=== PATIENT | female | born 1930 | race Caucasian/White ===

== ENCOUNTER 2016-04-04 18:52 | Emergency (ER) | payer MEDICARE, BC ==
--- OUTSIDE RECORDS SUMMARY | 2016-04-04 19:33 | XMS REPORT | Continuity of Care Document ---
:1930 Author Organization [facility] ([facility]) Address [address] [place] [address] Phone [phone] Care Team Providers Name Role Phone Ben, Quang Primary Care Provider [phone] Source Comments This disclosure is being made pursuant to the Care Everywhere program, applicable federal and state laws, and may not contain all informaitonavailable regarding this patient.[facility] ([facility]) Active Allergies and Adverse Reactions Allergen Noted Date Severity Reactions Comments Amoxicillin Urticaria (Hives) Current Medications Not on file Active Problems Problem Noted Date Optic atrophy, 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 Unspecified urinary incontinence 11/10/2005 Social History Tobacco Use Types Packs/Day Years Used Date Never Assessed Last Filed Vital Signs Vital Sign Reading Time Taken Blood Pressure 115/69 12/24/2005 9:37 AM CUSHION FORMER Pulse 85 12/24/2005 9:37 AM CUSHION FORMER Temperature - - Respiratory Rate - - Height 1.65 m (5' 4.96") 11/10/2005 9:05 AM CDT Weight 77.597 kg (171 lb 1.1 oz) 11/10/2005 9:05 AM CDT Body Mass Index 28.5 11/10/2005 9:05 AM CDT Oxygen Saturation - - Plan of Care Health Maintenance Due Date Last Done Comments Hepatitis B Vaccine (1 of 3 - Primary Series) 1930 Tdap Vaccine 02/20/1940 Lipid Disorder Screening 1948 Td Vaccine 1948 Zoster Vaccine 1989 Pneumococcal Vaccine (1 of 2 - PCV13) 1994 Influenza Vaccine: Seasonal (#1) 09/22/2015 Results from Last 3 Months Not on file
--- NOTE | 2016-04-04 19:36 | ERNOTE ---
Medical Problem HPI - Narrative Date of Service: 04/04/16 - General Chief Complaint: General Assessment Time Seen by Provider: 04/04/16 19:25 Source: patient, EMS Exam Limitations: other - patient difficult to understand - Immun/Allergies/Home Medications Immunizations: IMMUNIZATION HX Immunizations Up to Date unknown History of Influenza Vaccine Yes Hx Pneumococcal Vaccination Yes Allergies/Adverse Reactions: Allergies amoxicillin Allergy (Verified 04/04/16 19:11) prednisone Allergy (Verified 04/04/16 19:11) Home Medications: HOME MEDICATIONS Metformin HCl [Metformin HCl ER] 1,000 mg PO BID 05/04/12 [Last Taken 08/31/15] Simvastatin [Zocor] 20 mg PO HS 05/04/12 [Last Taken 08/31/15] ALPRAZolam [Xanax] 0.5 mg PO BID 08/10/15 [Last Taken 08/31/15] Mirtazapine [Remeron] 15 mg PO DAILY 08/10/15 [Last Taken 08/31/15] Acetaminophen [Tylenol] 1,000 mg PO Q4H PRN 08/31/15 [Last Taken 08/31/15] - History of Present History Narrative: History is very limited. By report she has been having spells where she is less responsive and more confused. This has been happening in the evenings for the last two days, worse tonight. She here is alert to verbal stimuli, easily arouses to my voice and answers to questions but is very difficult to understand. I can get no meaningful Hx from her. She denies CP or SOB. She states chronic leg pain but this is no different from prior. She denies vomiting or abdominal pain. No other Hx available from her. Timing: other - fluctuating intensity Modifying Factors - (Improves): Present: other - nothing Modifying Factors - (Worsens): Present: other - nothing Review of Systems - Narrative Narrative: ROS essentially unobtainable from the patient. No CP or SOB. No abdominal pain but otheerwise unobtainable. - Review of Systems All Other Systems: All systems neg except as marked - Patient's Past Medical History Patient History - Medical: Anxiety, Cataracts, Diabetes Type 2, Depression, Glaucoma Patient History - Cardiac/Respiratory: Hypertension, Hyperlipidemia Patient History - Cancer: No Hx of Cancer Patient History - Surgical Procedures: Cataracts, Hysterectomy Patient History - Other: None - Family History Mother Family History - Medical: History Unknown Family History - Cardiac/Respiratory: Hypertension, Myocardial Infarction - Social History Living Situations: prison Psych History: No pertinent hx Does anyone smoke in the home?: No Smoking Status: Never smoker Alcohol Use: none Drug Use: none - Immunizations Immunizations Up to Date: - unknown Hx Pneumococcal Vaccination: Yes History of Influenza Vaccine: Yes Physical Exam - Physical Exam General Appearance: Present: alert, no apparent distress Eye Exam: Normal inspection: bilateral Ears, Nose, Throat: Present: normal ENT inspection Neck: Present: normal inspection Respiratory: Present: no respiratory distress, no accessory muscle use, lungs clear Cardiovascular/Chest: Present: regular rate, rhythm Gastrointestinal/Abdominal: Present: normal bowel sounds, nondistended, soft. Absent: tenderness Back Exam: Absent: CVA tenderness (R), CVA tenderness (L) Extremity Exam: Present: other - no deformity Neurological Exam: Present: alert, other - generealized weakness but no acute unilateral focal motor or sensory deficits. Skin Exam: Absent: skin rash ED Progress - Vital Signs Vital Signs: Vital Signs 04/04/16 04/04/16 18:53 19:22 Temperature 35.9 C L Pulse Rate 78 79 Respiratory 16 16 Rate Blood Pressure 141/75 141/75 O2 Sat by Pulse 94 97 Oximetry - Progress/Reassessment Chief Complaint: General Assessment - Transfer of Care Physician Sign Out: Bryn Barry Receiving Physician: Brayan Rosa Pending Results: Labs, X-ray results Expected Disposition: Admit Departure - Departure Clinical Impression: Mental status change Referrals: Quang Contreras MD [Primary Care Provider] -
[2016-04-04 19:53] LABS: Hematocrit 37.5 % (37.0-47.0); Mean Cell Volume 91.5 fl (78-100); Mean Corpuscular Hemoglobin 29.3 pg (27-31); Mean Platelet Volume 8.7 fl (6.0-9.5); Neutrophil # 2.3 K/mm3 (1.3-6.0); Neutrophil % 41.8 % (42-75.0); Platelet Count 210 K/mm3 (150-450); Red Cell Distribution Width 13.5 % (11.5-14.0); White Blood Count 5.4 K/mm3 (4.0-10.5)
[2016-04-04 20:12] LABS: Albumin * 3.3 gm/dl (3.4-5.0); Anion Gap 9.7 mmol/L (6.8-13.8); BUN/Creatinine Ratio 16.7 (9.0-21.6); Bilirubin, Total 0.2 mg/dL (0.0-1.1); Ca. Corrected For Albumin 9.6 mg/dL (8.4-10.2); Calcium * 9.4 mg/dL (7.9-10.9); Carbon Dioxide 31.5 mmol/L (24-32.6); Potassium 4.2 mmol/L (3.4-4.6); Total Protein 6.5 gm/dL (6.2-8.2); Troponin I 0.022 ng/ml (0.00-0.10)
[2016-04-04 20:48] LABS: Urine Appearance Clear; Urine Bilirubin Negative (NEGATIVE); Urine Blood Negative /ul (NEGATIVE); Urine Color Yellow; Urine Ketone Negative (NEGATIVE)
[2016-04-04 20:49] LABS: Urine Bacteria None Seen; Urine Nitrite Negative (NEGATIVE); Urine Protein Negative (NEGATIVE); Urine RBC None Seen /hpf (0-5); Urine Urobilinogen Normal (NORMAL); Urine WBC None Seen /hpf (0-5); Urine pH 5.5 pH (5.0-7.0)
[2016-04-04 22:32] VITALS: BP 155/71
== END 2016-04-04 22:00 | disposition home health service (06) ==
LOC: ER 18:52
PROC: 0T9B7ZZ Drainage of Bladder, Via Natural or Artificial Opening (ICD-10-PCS; principal; 2016-04-04)
DX: R41.82 Altered mental status, unspecified (principal); R41.0 Disorientation, unspecified; F19.10 Other psychoactive substance abuse, uncomplicated

== ENCOUNTER 2017-11-16 09:07 | Observation (INO) | payer BC, MEDICARE ==
[2017-11-16] MEDS ORDERED: KETOROLAC TROMETHAMINE 60 MG/2 ML VIAL IM ONE ×2 (09:17→09:18)
--- NOTE | 2017-11-16 09:22 | ERNOTE ---
Trauma/Assault HPI - Narrative Date of Service: 11/16/17 - General Stated Complaint: FALL YESTERDAY-HIP PAIN Time Seen by Provider: 11/16/17 09:14 Source: patient Exam Limitations: no limitations - Immun/Allergies/Home Medications Immunizations: IMMUNIZATION HX Immunizations Up to Date Yes History of Influenza Vaccine No Hx Pneumococcal Vaccination No Allergies/Adverse Reactions: Allergies amoxicillin Allergy (Verified 11/16/17 09:13) Penicillins Allergy (Verified 11/16/17 09:13) Rash Hives prednisone Allergy (Verified 11/16/17 09:13) Home Medications: HOME MEDICATIONS nystatin 100,000 unit/gram topical powder 1 applic TP BID PRN #60 g 09/15/17 [ Last Taken Unknown] loperamide 2 mg capsule 2 mg PO Q4H PRN #90 cap 10/11/17 [Last Taken Unknown] BiPAP 16 cm RAIMUNDO DIRECTED #1 10/14/17 [Last Taken Unknown] acetaminophen 325 mg tablet 325 mg PO Q4H PRN 10/14/17 [Last Taken Unknown] carbamide peroxide 6.5 % ear drops 5 drp OT BID 10/14/17 [Last Taken Unknown] walker See Dose Instructions .ROUTE .MEDSUPPLY #1 ea 10/14/17 [Last Taken Unknown] hydrocortisone 1 % topical cream 1 applic TP BID PRN #28 g 10/18/17 [Last Taken Unknown] levothyroxine 25 mcg tablet 25 mcg PO DAILY #30 tab 11/03/17 [Last Taken Unknown ] alprazolam 0.5 mg tablet 0.5 mg PO BID PRN #60 tab 11/04/17 [Last Taken Unknown] mirtazapine 7.5 mg tablet 7.5 mg PO DAILY #30 tab 11/04/17 [Last Taken Unknown] amhqydoj-udbnpmaixuf-wnfux petrolatum topical cream 1 applic TP BID #453 g 11/10 [Last Taken Unknown] metformin 500 mg tablet 1,000 mg PO BID #360 tab 11/15/17 [Last Taken Unknown] sertraline 25 mg tablet 25 mg PO DAILY #30 tab 11/15/17 [Last Taken Unknown] simvastatin 20 mg tablet 20 mg PO HS #28 tab 11/15/17 [Last Taken Unknown] - History of Present Illness Narrative: patient c/o fall yesterday on left hip, persitant pain, unable to walk Location Occurred: Reports: home Pain Location: Reports: lower extremity Method of Injury: Reports: fall Severity: moderate Modifying Factors - (Improves): Reports: rest Modifying Factors - (Worsens): Reports: movement Loss of Consciousness: Reports: no loss of consciousness, still comatose Review of Systems - Narrative Narrative: patient c/o left hip pain - Review of Systems Constitutional: Present: See HPI EYE: Present: no symptoms reported ENT: Present: no symptoms reported Respiratory: Present: no symptoms reported Cardiology: Present: no symptoms reported Gastrointestinal/Abdominal: Present: no symptoms reported Genitourinary: Present: no symptoms reported Musculoskeletal: Present: See HPI, muscle pain, muscle stiffness, joint pain Skin: Present: no symptoms reported Neurological: Present: no symptoms reported Endocrine: Present: no symptoms reported Hematologic/Lymphatic: Present: no symptoms reported Psych: Present: no symptoms reported All Other Systems: All systems neg except as marked Medical History (Last Reviewed 11/16/17 @ 09:17 by Christiano Hernandez RN) Overactive bladder (Chronic) Onset Date: Unknown Hyperlipemia (Chronic) Onset Date: Unknown Generalized anxiety disorder (Chronic) Onset Date: Unknown Diabetes mellitus, type II (Chronic) Onset Date: Unknown Arthritis Depression Glaucoma Onset Date: Unknown Major depressive disorder Nightmares Wears dentures Onset Date: Unknown Wears glasses Onset Date: Unknown Bronchitis Measles Scarlet fever Surgical History: Surgical History (Last Reviewed 11/16/17 @ 09:17 by Christiano Hernandez RN) H/O bilateral cataract extraction Onset Date: ~1997 History of bladder surgery Onset Date: ~10/1998 S/P SUSANA (total abdominal hysterectomy) Onset Date: ~1995 Family History: Family History (Last Reviewed 11/16/17 @ 09:17 by Christiano Hernandez RN) Sister CVA (cerebral vascular accident) Diabetes Brother Cancer Grandmother Heart disease Hypertension Mother Hypertension Daughter FH: mental illness Other Unknown family medical history Social History: Preferred Language Paraguayan Do you have any orthodox or No cultural preference? Smoking Status Former smoker Have you smoked in the past 12 No months Do you dip or chew tobacco No Psych History No pertinent hx Alcohol Use none Drug Use none Physical Exam - Physical Exam General Appearance: Present: moderate distress, anxious Head Exam: Present: normal inspection, no evidence of injury Eye Exam: Normal inspection: bilateral, PERRL: bilateral, EOMI: bilateral Ears, Nose, Throat: Present: normal ENT inspection, normal pharynx Neck: Present: normal inspection, nontender Respiratory: Present: no respiratory distress, normal breath sounds, no accessory muscle use, chest nontender, lungs clear Cardiovascular/Chest: Present: regular rate, rhythm, no murmur, normal peripheral pulses Gastrointestinal/Abdominal: Present: normal bowel sounds, nontender, nondistended, soft, no organomegaly Back Exam: Present: normal inspection, normal range of motion, no CVA tenderness , no vertebral tenderness Extremity Exam: Present: normal except - - pain over greater trochanter of left hip Skin Exam: Present: normal color, warm/dry Lymphatic Exam: Present: no adenopathy ED Progress - Date and Time Seen: Date and Time: 11/16/17 11:08 patient improved, discussed results of x-rays and labs, case discussed with dr byers, who accepts patient for admission - Results and Orders Patient's Lab Results:: I have reviewed the patient's lab results. - Vital Signs Patient's Vital Signs:: I have reviewed the patient's vital signs. Vital Signs: Vital Signs 11/16/17 09:09 Temperature 36.5 C Pulse Rate 92 Respiratory Rate 16 Blood Pressure 150/71 H O2 Sat by Pulse Oximetry 98 - EKG EKG: NSR EKG read: Interp. by me - Progress/Reassessment Chief Complaint: Fall Progress:: Unchanged - Transfer of Care Expected Disposition: Admit Plan - Plan Plan: to be admitted Departure Clinical Impression: Pelvis fracture, Urinary tract infection - Departure Disposition: Still a patient Condition: Fair Instructions: Simple Pelvic Fracture, Adult, Urinary Tract Infection, Adult, [id number] Referrals: Quang Contreras MD [Primary Care Provider] - Critical Care Time - Critical Care Critical Time Spent:: No
[2017-11-16 10:20] LABS: Hematocrit 35.3 % (37.0-47.0); Hemoglobin 11.6 gm/dL (12.5-16.0); Mean Cell Volume 93.1 fl (78-100); Mean Corpuscular Hemoglobin 30.6 pg (27-31); Mean Corpuscular Hgb Conc 32.9 g/dl (32-36); Mean Platelet Volume 8.9 fl (8-12.5); Neutrophil # 5.7 K/mm3 (1.3-6.0); Neutrophil % 76.2 % (42-75.0); Platelet Count 216 K/mm3 (150-450); Red Blood Count 3.79 M/mm3 (4.2-5.4); Red Cell Distribution Width 13.2 % (11.5-14.0); White Blood Count 7.5 K/mm3 (4.0-10.5)
[2017-11-16 10:31] LABS: Albumin * 3.5 gm/dl (3.4-5.0); Anion Gap 12.8 mmol/L (6.8-13.8); BUN/Creatinine Ratio 16.7 (9.0-21.6); Bilirubin, Total 0.7 mg/dL (0.0-1.1); Calcium * 8.9 mg/dL (7.9-10.9); Potassium 3.8 mmol/L (3.4-4.6); Total Protein 6.5 gm/dL (6.2-8.2)
[2017-11-16 10:45] LABS: Urine Bilirubin Negative (NEGATIVE); Urine Blood Negative /ul (NEGATIVE); Urine Ketone 15 mg/dL (NEGATIVE); Urine Nitrite Negative (NEGATIVE); Urine Protein Negative (NEGATIVE); Urine Urobilinogen Normal (NORMAL)
[2017-11-16 10:56] LABS: Urine Appearance Slightly Cloudy (CLEAR); Urine Bacteria 3+; Urine Color Yellow; Urine RBC 0-5 /hpf (0-5)
[2017-11-16] MEDS ORDERED: MORPHINE SULFATE 4 MG/ML SYRG IV PRN (11:16)
[2017-11-16] MEDS: CIPROFLOXACIN IN 5 % DEXTROSE 400 MG/200 ML BAG IV SCH ×2 (12:10→23:01)
[2017-11-16] MEDS ORDERED: MORPHINE SULFATE 2 MG/ML DISP.SYRIN IV PRN (13:15)
[2017-11-16] MEDS: NORMAL SALINE 1,000 ML IV PRN (16:27)
[2017-11-16] MEDS ORDERED: HYDROCORTISONE 30 APPL TUBE TP PRN (20:57)
[2017-11-16] MEDS ORDERED: LOPERAMIDE HCL 2 MG CAPSULE PO PRN (20:57)
[2017-11-16] MEDS ORDERED: NYSTATIN 15 APPL BTL TP PRN (20:57)
[2017-11-16] MEDS ORDERED: ALPRAZolam 0.5 MG TABLET PO PRN (20:57)
[2017-11-16] MEDS ORDERED: [UNRECOGNIZED DRUG - REMARK] SCH (21:00)
[2017-11-16] MEDS ORDERED: SIMVASTATIN 20 MG TABLET PO SCH (21:00)
[2017-11-16] MEDS ORDERED: [UNRECOGNIZED DRUG - OTHER] NAS SCH (21:00)
[2017-11-16] MEDS ORDERED: metFORMIN HCL 500 MG TABLET PO SCH (21:00)
--- NOTE | 2017-11-16 21:10 | HP ---
Chief Complaint - Chief Complaint Date of Service: 11/16/17 Time of Service: 07:10 Chief Complaint: pelvic pain due to fracture History of Present Illness: Gabriella Amaya is an 87-year-old female patient who presented to the ER with pelvic pain following up all. Diagnosed with a nondisplaced pelvic fracture. She is unable to bear weight and subsequently admitted. On examination this evening she denies having any pain until I put pressure over the symphysis pubis and that created some increased pain in the pelvis then. She's had no previous fractures reported. She has a history of hypertension, and poor dentition. Medical History (Last Reviewed 11/16/17 @ 09:17 by Christiano Hernandez RN) Overactive bladder (Chronic) Onset Date: Unknown Hyperlipemia (Chronic) Onset Date: Unknown Generalized anxiety disorder (Chronic) Onset Date: Unknown Diabetes mellitus, type II (Chronic) Onset Date: Unknown Arthritis Depression Glaucoma Onset Date: Unknown Major depressive disorder Nightmares Wears dentures Onset Date: Unknown Wears glasses Onset Date: Unknown Bronchitis Measles Scarlet fever Surgical History: Surgical History (Last Reviewed 11/16/17 @ 09:17 by Christiano Hernandez RN) H/O bilateral cataract extraction Onset Date: ~1997 History of bladder surgery Onset Date: ~10/1998 S/P SUSANA (total abdominal hysterectomy) Onset Date: ~1995 Family History: Family History (Last Reviewed 11/16/17 @ 09:17 by Christiano Hernandez RN) Sister CVA (cerebral vascular accident) Diabetes Brother Cancer Grandmother Heart disease Hypertension Mother Hypertension Daughter FH: mental illness Other Unknown family medical history Social History: Patient Lives/Resources [employer] Utilized Occupation retired Preferred Language Chinese Do you have any druze or No cultural preference? Smoking Status Never smoker Have you smoked in the past 12 No months Do you dip or chew tobacco No Psych History No pertinent hx Alcohol Use none Drug Use none Review Of Systems (GEN) - Review of Systems EENTM: Present: No Symptoms Reported Respiratory: Present: No Symptoms Reported Cardiac: Present: No Symptoms Reported Abdominal: Present: No Symptoms Reported Genitourinary: Present: No Symptoms Reported Musculoskeletal: Present: No Symptoms Reported, Other - Initially had severe pelvic pain and was unable to bear weight. She is able to bear weight here. Skin: Present: No Symptoms Reported Endocrine: Present: No Symptoms Reported Immunizations: IMMUNIZATION HX Immunizations Up to Date Yes History of Influenza Vaccine No Hx Pneumococcal Vaccination No Allergies/Adverse Reactions: Allergies Allergy/AdvReac Type Severity Reaction Status Date / Time amoxicillin Allergy Verified 11/16/17 09:13 Penicillins Allergy Rash Hives Verified 11/16/17 09:13 prednisone Allergy Verified 11/16/17 09:13 Home Medications: HOME MEDICATIONS nystatin 100,000 unit/gram topical powder 1 applic TP BID PRN #60 g 09/15/17 [ Last Taken Unknown] loperamide 2 mg capsule 2 mg PO Q4H PRN #90 cap 10/11/17 [Last Taken Unknown] BiPAP 16 cm RAIMUNDO DIRECTED #1 10/14/17 [Last Taken Unknown] acetaminophen 325 mg tablet 325 mg PO Q4H PRN 10/14/17 [Last Taken Unknown] carbamide peroxide 6.5 % ear drops 5 drp OT BID 10/14/17 [Last Taken Unknown] walker See Dose Instructions .ROUTE .MEDSUPPLY #1 ea 10/14/17 [Last Taken Unknown] hydrocortisone 1 % topical cream 1 applic TP BID PRN #28 g 10/18/17 [Last Taken Unknown] levothyroxine 25 mcg tablet 25 mcg PO DAILY #30 tab 11/03/17 [Last Taken Unknown ] alprazolam 0.5 mg tablet 0.5 mg PO BID PRN #60 tab 11/04/17 [Last Taken Unknown] mirtazapine 7.5 mg tablet 7.5 mg PO DAILY #30 tab 11/04/17 [Last Taken Unknown] lfolvmov-imbaxwoqlee-benfm petrolatum topical cream 1 applic TP BID #453 g 11/10 [Last Taken Unknown] metformin 500 mg tablet 1,000 mg PO BID #360 tab 11/15/17 [Last Taken Unknown] sertraline 25 mg tablet 25 mg PO DAILY #30 tab 11/15/17 [Last Taken Unknown] simvastatin 20 mg tablet 20 mg PO HS #28 tab 11/15/17 [Last Taken Unknown] Exam - Exam Vital Signs: Vital Signs - Last Taken Temp 36.5 C 11/16/17 19:15 Pulse 94 11/16/17 19:15 Resp 18 11/16/17 19:15 BP 164/90 H 11/16/17 19:15 Pulse Ox 96 11/16/17 19:15 Constitutional: Present: Alert, Oriented x3, Cooperative, Well developed, Well nourished, No distress ENT Exam: Present: normal ENT inspection, hearing grossly normal, pharynx normal Eye Exam: bilateral eye: normal inspection, PERRL, EOMI Neck: Present: non-tender, full range of motion, supple, normal inspection, trachea midline, limited range of motion Back Exam: Present: normal inspection, no CVA tenderness, no vertebral tenderness Breasts: Present: Exam deferred Respiratory: Present: chest non-tender, lungs clear, normal breath sounds, no respiratory distress, no accessory muscle use Cardiovascular/Chest: Present: normal peripheral pulses, regular rate, rhythm, no chest tenderness, no edema, no gallop, no JVD, no murmur, no rub Peripheral Pulses: carotid (R): 2+, carotid (L): 2+, radial (R): 2+, radial (L) : 2+ Abdomen: Present: Normal bowel sounds, soft, nontender, nondistended, no rebound tenderness, no hepatospenomegaly, no masses, obese /Rectal: Present: Exam deferred Extremity: Present: normal range of motion, non-tender, normal inspection, no pedal edema, no calf tenderness, normal capillary refill Skin Exam: Present: normal color, warm/dry Lymphatic: Present: no adenopathy Neurologic: Present: head usher II-XII nml as tested, no motor/sensory deficits, alert , normal mood/affect Appearance: Present: appropriate appearance Eye contact: Present: cooperative Thoughts: Present: normal thought pattern, no apparent hallucination Diagnostic Studies: Abnormal Lab Results 11/16/17 11/16/17 11/16/17 Range/Units 10:00 10:00 10:41 RBC 3.79 L (4.2-5.4) M/mm3 Hgb 11.6 L (12.5-16.0) gm/dL Hct 35.3 L (37.0-47.0) % Neutrophils % 76.2 H (42-75.0) % Lymphocytes % 13.1 L (20-51) % Lymphocytes # 0.98 L (1.5-3.5) k/mm3 Random Glucose 123 H (70-110) mg/dL Alkaline Phosphatase 48 L (50-170) U/L Ur Leukocyte Esterase 25 H (NEGATIVE) /ul Urine WBC 10-25 H (0-5) /hpf Urine Bacteria 3+ H (NONE) Laboratory Results WBC 7.5 K/mm3 (4.0-10.5) 11/16/17 10:00 RBC 3.79 M/mm3 (4.2-5.4) L 11/16/17 10:00 Hgb 11.6 gm/dL (12.5-16.0) L 11/16/17 10:00 Hct 35.3 % (37.0-47.0) L 11/16/17 10:00 MCV 93.1 fl (78-100) 11/16/17 10:00 MCH 30.6 pg (27-31) 11/16/17 10:00 MCHC 32.9 g/dl (32-36) 11/16/17 10:00 RDW 13.2 % (11.5-14.0) 11/16/17 10:00 Plt Count 216 K/mm3 (150-450) 11/16/17 10:00 MPV 8.9 fl (8-12.5) 11/16/17 10:00 Immature Gran % (Auto) 0.40 % (0.001-0.429) 11/16/17 10:00 Immature Gran # (Auto) 0.03 K/mm3 (0.000-0.0310) 11/16/17 10:00 Neutrophils % 76.2 % (42-75.0) H 11/16/17 10:00 Lymphocytes % 13.1 % (20-51) L 11/16/17 10:00 Monocytes % 8.9 % (0.0-9) 11/16/17 10:00 Eosinophils % 0.9 % (0.0-3.0) 11/16/17 10:00 Basophils % 0.5 % (0.0-1.0) 11/16/17 10:00 Nucleated RBC % 0.0 k/mm3 (0-1) 11/16/17 10:00 Neutrophils # 5.7 K/mm3 (1.3-6.0) 11/16/17 10:00 Lymphocytes # 0.98 k/mm3 (1.5-3.5) L 11/16/17 10:00 Monocytes # 0.7 k/mm3 (0.0-1.0) 11/16/17 10:00 Eosinophils # 0.1 k/mm3 (0.0-0.7) 11/16/17 10:00 Absolute Basophils 0.0 k/mm3 (0.0-0.1) 11/16/17 10:00 Sodium 138 mmol/L (132-142) 11/16/17 10:00 Plasma Sodium 138 mmol/L (130-142) 11/16/17 10:00 Potassium 3.8 mmol/L (3.4-4.6) 11/16/17 10:00 Chloride 100 mmol/L (97-106) 11/16/17 10:00 Carbon Dioxide 29.0 mmol/L (24-32.6) 11/16/17 10:00 Anion Gap 12.8 mmol/L (6.8-13.8) 11/16/17 10:00 BUN 12 mg/dL (3-23) 11/16/17 10:00 Creatinine 0.72 mg/dL (0.4-1.4) 11/16/17 10:00 Est GFR (Non-Af Amer) 81 mL/min (60-130) 11/16/17 10:00 BUN/Creatinine Ratio 16.7 (9.0-21.6) 11/16/17 10:00 Random Glucose 123 mg/dL (70-110) H 11/16/17 10:00 Calcium 8.9 mg/dL (7.9-10.9) 11/16/17 10:00 Calcium Adj for Albumin 9.0 mg/dL (8.4-10.2) 11/16/17 10:00 Total Bilirubin 0.7 mg/dL (0.0-1.1) 11/16/17 10:00 AST 20 U/L (0-48) 11/16/17 10:00 ALT 21 U/L (19-67) 11/16/17 10:00 Alkaline Phosphatase 48 U/L (50-170) L 11/16/17 10:00 Total Protein 6.5 gm/dL (6.2-8.2) 11/16/17 10:00 Albumin 3.5 gm/dl (3.4-5.0) 11/16/17 10:00 Urine Color Yellow 11/16/17 10:41 Urine Appearance Slightly cloudy (CLEAR) 11/16/17 10:41 Urine pH 6.0 pH (5.0-7.0) 11/16/17 10:41 Ur Specific Kerrick 1.020 SP.GR. (1.005-1.010) 11/16/17 10:41 Urine Protein Negative mg/dL (NEGATIVE) 11/16/17 10:41 Urine Glucose (UA) Negative mg/dL (NEGATIVE) 11/16/17 10:41 Urine Ketones 15 mg/dL (NEGATIVE) 11/16/17 10:41 Urine Blood Negative /ul (NEGATIVE) 11/16/17 10:41 Urine Nitrate Negative (NEGATIVE) 11/16/17 10:41 Urine Bilirubin Negative mg/dl (NEGATIVE) 11/16/17 10:41 Urine Urobilinogen Normal EU/dl (NORMAL) 11/16/17 10:41 Ur Leukocyte Esterase 25 /ul (NEGATIVE) H 11/16/17 10:41 Urine RBC 0-5 /hpf (0-5) 11/16/17 10:41 Urine WBC 10-25 /hpf (0-5) H 11/16/17 10:41 Ur Epithelial Cells 0-5 /hpf (0-5) 11/16/17 10:41 Urine Bacteria 3+ (NONE) H 11/16/17 10:41 Urine Culture Comments Culture to follow 11/16/17 10:41 Assessment/Plan - Narrative Narrative: 1. Pain management 2. PT to evaluate and progress weight-bearing as pain allows 3. Monitor blood sugars and blood pressure. - Assessment/Plan (1) Pelvis fracture Problem: Acute (2) Urinary tract infection Problem: Acute (3) Diabetes mellitus, type II Problem: Chronic (4) Anxiety Problem: Acute
[2017-11-16] MEDS: [UNRECOGNIZED DRUG - OTHER] TP SCH (21:48)
[2017-11-16] MEDS: GLY TP SCH (21:48)
[2017-11-16] MEDS: DIMETH TP SCH (21:48)
[2017-11-16] MEDS: PETROLAT WHT TP SCH (21:48)
[2017-11-16] MEDS: ACETAMINOPHEN 325 MG TABLET PO PRN (22:58)
[2017-11-17] MEDS: NORMAL SALINE 1,000 ML IV PRN (01:50)
[2017-11-17] MEDS ORDERED: ONDANSETRON HCL/PF 2 MG/ML VIAL IV PRN (05:33)
[2017-11-17] MEDS ORDERED: LEVOTHYROXINE SODIUM 25 MCG TABLET PO SCH (07:00)
[2017-11-17] MEDS: PETROLAT WHT TP SCH (08:08)
[2017-11-17] MEDS: DIMETH TP SCH (08:08)
[2017-11-17] MEDS: GLY TP SCH (08:08)
[2017-11-17] MEDS: [UNRECOGNIZED DRUG - OTHER] TP SCH (08:08)
[2017-11-17] MEDS: ACETAMINOPHEN 325 MG TABLET PO PRN (08:09)
[2017-11-17] MEDS ORDERED: SERTRALINE HCL 50 MG TABLET PO SCH (09:00)
[2017-11-17] MEDS ORDERED: amLODIPine BESYLATE 5 MG TABLET PO SCH (09:00)
--- NOTE | 2017-11-17 09:11 | DS ---
(1) Pelvis fracture Problem: Acute Qualifiers: (2) Urinary tract infection Problem: Acute Qualifiers: Urinary tract infection type: acute cystitis Hematuria presence: without hematuria Qualified Code(s): N30.00 - Acute cystitis without hematuria (3) Diabetes mellitus, type II Problem: Chronic Qualifiers: Diabetes mellitus [facility] insulin use: without [facility] use Diabetes mellitus complication status: without complication Qualified Code(s): E11.9 - Type 2 diabetes mellitus without complications (4) Anxiety Problem: Acute Description of Stay: Gabriella Amaya is an 87 yo. cauc. fe. who fellat the [place] and injured her pelvis. She was in severe pain on arrival to the ER but has been in very little pain since being admittedl. She is now ambulatory. She is eating well. There has not been any interim complications. Procedures Performed: none Results and Findings: Pending Mircobiology Results 11/16/17 10:41 Urine,Catheterized Urine Culture - Preliminary Gram Negative Bacilli Lab Pending Results 11/16/17 10:00: WBC 7.5, RBC 3.79 L, Hgb 11.6 L, Hct 35.3 L, MCV 93.1, MCH 30.6, MCHC 32.9, RDW 13.2, Plt Count 216, MPV 8.9, Immature Gran % (Auto) 0.40, Immature Gran # (Auto) 0.03, Neutrophils % 76.2 H, Lymphocytes % 13.1 L, Monocytes % 8.9, Eosinophils % 0.9, Basophils % 0.5, Nucleated RBC % 0.0, Neutrophils # 5.7, Lymphocytes # 0.98 L, Monocytes # 0.7, Eosinophils # 0.1, Absolute Basophils 0.0 11/16/17 10:00: Sodium 138, Plasma Sodium 138, Potassium 3.8, Chloride 100, Carbon Dioxide 29.0, Anion Gap 12.8, BUN 12, Creatinine 0.72, Est GFR (Non-Af Amer) 81, BUN/Creatinine Ratio 16.7, Random Glucose 123 H, Calcium 8.9, Calcium Adj for Albumin 9.0, Total Bilirubin 0.7, AST 20, ALT 21, Alkaline Phosphatase 48 L, Total Protein 6.5, Albumin 3.5 11/16/17 10:41: Urine Color Yellow, Urine Appearance Slightly cloudy, Urine pH 6.0, Ur Specific [place] 1.020, Urine Protein Negative, Urine Glucose (UA) Negative, Urine Ketones 15, Urine Blood Negative, Urine Nitrate Negative, Urine Bilirubin Negative, Urine Urobilinogen Normal, Ur Leukocyte Esterase 25 H, Urine RBC 0-5, Urine WBC 10-25 H, Ur Epithelial Cells 0-5, Urine Bacteria 3+ H, Urine Culture Comments Culture to follow Discharge Location: [facility] Disposition: [facility] Service Home Health Agency: [facility] Home Health Condition: Fair Face to Face Encounter completed per [facility] Guidelines: Yes - She will need PT for limb strengthening and ballance training. Discharge Activity: Activity as tolerated, Weight bearing Discharge Diet: General/regular food Referrals: Quang Contreras MD [Primary Care Provider] - Problem Oriented Discharge Instructions to Patient/Family: Urinary Tract Infection, Adult, [id number], Simple Pelvic Fracture, Adult Additional Patient Instructions (free text): -Please make TCM appointment unless alf discharge. Thank you! Lynne @ [phone]. Follow up with on 11-23-17 at 1:45pm. Prescriptions (Any new or edited meds): amLODIPine BESYLATE [Norvasc] 5 mg PO DAILY #30 tab Complete Home Medications List: Complete Home Medication List: nystatin 100,000 unit/gram topical powder 1 applic TP BID PRN #60 g 09/15/17 loperamide 2 mg capsule 2 mg PO Q4H PRN #90 cap 10/11/17 BiPAP 16 cm RAIMUNDO DIRECTED #1 10/14/17 walker See Dose Instructions .ROUTE .MEDSUPPLY #1 ea 10/14/17 hydrocortisone 1 % topical cream 1 applic TP BID PRN #28 g 10/18/17 levothyroxine 25 mcg tablet 25 mcg PO DAILY #30 tab 11/03/17 alprazolam 0.5 mg tablet 0.5 mg PO BID PRN #60 tab 11/04/17 mirtazapine 7.5 mg tablet 7.5 mg PO DAILY #30 tab 11/04/17 [id number]-[id number] petrolatum topical cream 1 applic TP BID #453 g 11/10/17 metformin 500 mg tablet 1,000 mg PO BID #360 tab 11/15/17 sertraline 25 mg tablet 25 mg PO DAILY #30 tab 11/15/17 simvastatin 20 mg tablet 20 mg PO HS #28 tab 11/15/17 amLODIPine BESYLATE [Norvasc] 5 mg PO DAILY #30 tab 11/17/17 acetaminophen 325 mg tablet 650 mg PO Q4H #180 tab 11/21/17
[2017-11-17 11:30] VITALS: BP 152/84
[2017-11-17] MEDS: CIPROFLOXACIN IN 5 % DEXTROSE 400 MG/200 ML BAG IV SCH (12:45)
[2017-11-17] MEDS ORDERED: MIRTAZAPINE 15 MG TABLET PO SCH (21:00)
== END 2017-11-17 13:00 | disposition home health service (06) ==
LOC: MS 09:07 → ER 09:07 → MS 11:50
PROVIDERS: ADMIT Family Medicine; ATTEND Family Medicine
CPT/HCPCS: 36415; 73502; 80053; 81001; 85025; 87077; 87081; 87086; 87186; 90686; 93005; 94660; 96361; 96365; 96372; 97116; 97161; 99283; G0008; G0378; G8978; G8979; G8980

== ENCOUNTER 2018-12-03 03:03 | Observation (INO) ==
[2018-12-03] MEDS ORDERED: MORPHINE SULFATE 4 MG/ML SYRG IV ONE ×2 (03:14→04:26)
--- NOTE | 2018-12-03 03:25 | ERNOTE ---
Dyspnea - Date Date of Service: 12/03/18 - General Presenting Symptoms: shortness of breath Time Seen by Provider: 12/03/18 03:13 Source: patient, other - Staff from [place] - Immun/Allergies/Home Medications Immunizations: IMMUNIZATION HX Immunizations Up to Date Yes History of Influenza Vaccine No Hx Pneumococcal Vaccination No Allergies/Adverse Reactions: Allergies amoxicillin Allergy (Verified 11/16/18 10:19) Penicillins Allergy (Verified 11/16/18 10:19) Rash Hives prednisone Allergy (Verified 11/16/18 10:19) Home Medications: HOME MEDICATIONS nystatin 100,000 unit/gram topical powder 1 applic TP BID PRN #60 g 09/15/17 [Last Taken Unknown] BiPAP 16 cm RAIMUNDO DIRECTED #1 10/14/17 [Last Taken Unknown] walker See Dose Instructions .ROUTE .MEDSUPPLY #1 ea 10/14/17 [Last Taken Unknown] apixaban 2.5 mg tablet See Rx Instructions .ROUTE .COMPLEX #56 tablet 05/16/18 [Last Taken Unknown] ferrous sulfate 325 mg (65 mg iron) tablet See Rx Instructions .ROUTE .COMPLEX #56 tablet 05/16/18 [Last Taken Unknown] CETAPHIL MOISTURIZING CREAM See Rx Instructions .ROUTE .COMPLEX #453 gram 07/07/18 [Last Taken Unknown] alprazolam 0.5 mg tablet 0.5 mg PO BID PRN #60 tab 07/10/18 [Last Taken Unknown] mirabegron ER 50 mg tablet,extended release 24 hr 50 mg PO DAILY 09/15/18 [Last Taken Unknown] tramadol 50 mg tablet 50 mg PO Q6H PRN #30 tab 09/20/18 [Last Taken Unknown] amlodipine 5 mg tablet 5 mg PO DAILY #90 tab 09/26/18 [Last Taken Unknown] simvastatin 20 mg tablet 20 mg PO DAILY #30 tab 11/06/18 [Last Taken Unknown] loperamide 2 mg capsule 2 mg PO Q4H PRN #90 cap 11/13/18 [Last Taken Unknown] acetaminophen 325 mg tablet 650 mg PO Q4H #360 tab 11/16/18 [Last Taken Unknown] escitalopram 20 mg tablet 20 mg PO DAILY #30 tab 11/16/18 [Last Taken Unknown] trazodone 50 mg tablet 50 mg PO HS #30 tab 11/16/18 [Last Taken Unknown] menthol 4 % topical gel 1 applic TP QID PRN #118 ml 11/23/18 [Last Taken Unknown] metoprolol tartrate 25 mg tablet 25 mg PO BID #60 tab 11/27/18 [Last Taken Unknown] Sulfamethoxazole/Trimethoprim [Bactrim 400-80 mg Tablet] 1 ea PO DAILY 12/03/18 [Last Taken Unknown] - History of Present Illness Narrative: This is an 88-year-old female from [facility]. She is sent in by ambulance at 3:00 in the morning. She arrived and we have not received a report. EMS was called out for dyspnea. It is unclear what the patient's baseline mental state is. At this time she is complaining of severe pain to her right hip. Patient initially was unable to tell me what her name was. When asked her name she said she had 10 out of 10 pain in her right hip. The patient is just asked to be placed on a bedpan. She seems calmer and better able to interact. She says that she was brought to the emergency room because she was having severe pain in her right hip. She says it is 10 out of 10 pain. She says the pain is exactly the same as it was yesterday. The pain is the same as it was last week last month and last year. I asked her what changed that led to her coming to the emergency department and she said "I cannot take the pain anymore. The patient was asked if she feels short of breath, as that is what the EMS was paged out for. She says she gets short of breath when she has bad pain. When I asked her if she had shortness of breath yesterday she said that she did because she had severe pain. She says she had severe pain last week and had shortness of breath with it. Really has not been any change in her breathing either. She was given tramadol earlier, for the hip pain, but has not helped. Nursing staff saw her take the pill. The patient insists that she has not fallen. She says that this is the same pain she has had. Review of Systems - Review of Systems Constitutional: Present: no symptoms reported EYE: Present: no symptoms reported ENT: Present: no symptoms reported Respiratory: Present: shortness of breath Cardiology: Present: no symptoms reported Gastrointestinal/Abdominal: Present: no symptoms reported Genitourinary: Present: no symptoms reported Musculoskeletal: Present: joint pain - Right hip Neurological: Present: no symptoms reported Endocrine: Present: no symptoms reported Hematologic/Lymphatic: Present: no symptoms reported Psych: Present: no symptoms reported All Other Systems: All systems neg except as marked Medical History (Updated 12/03/18 @ 04:28 by Charanjit Farah MD) Major depression (Chronic) Overactive bladder (Chronic) Onset Date: Unknown Hyperlipemia (Chronic) Onset Date: Unknown Generalized anxiety disorder (Chronic) Onset Date: Unknown Diabetes mellitus, type II (Chronic) Onset Date: Unknown Groin pain Scoliosis Weakness generalized Arthritis Depression Glaucoma Onset Date: Unknown Major depressive disorder Nightmares Wears dentures Onset Date: Unknown Wears glasses Onset Date: Unknown Bronchitis Measles Scarlet fever Surgical History: Surgical History (Updated 06/15/18 @ 10:36 by SUSAN Peterson) H/O bilateral cataract extraction Onset Date: ~1997 History of bladder surgery Onset Date: ~10/1998 S/P SUSANA (total abdominal hysterectomy) Onset Date: ~1995 Family History: Family History (Updated 11/03/17 @ 17:34 by Katarzyna Lubin LPN) Sister CVA (cerebral vascular accident) Diabetes Brother Cancer Grandmother Heart disease paternal Hypertension paternal Mother Hypertension Daughter FH: mental illness spent time at [facility] for talking too fast Other Unknown family medical history Social History: (Last Updated 11/16/18 @ 11:00 by SUSAN Peterson) Social History: adopted: No custodial: Yes household members: caregiver current occupational status: retired Service: No Tobacco: Smoking Status: Never smoker Alcohol: alcohol intake: never Substance Use: substance use type: does not use Dietary Habits: caffeine: Yes Physical Exam - Physical Exam General Appearance: Present: wd/wn, alert, no apparent distress Head Exam: Present: normal inspection Eye Exam: Normal inspection: bilateral, PERRL: bilateral Ears, Nose, Throat: Present: other Neck: Present: normal inspection, nontender Respiratory: Present: no respiratory distress, normal breath sounds, chest nontender, lungs clear, other - When the patient sits up she has significant discomfort and breathes faster. But the lungs are clear. Cardiovascular/Chest: Present: regular rate, rhythm, no murmur Gastrointestinal/Abdominal: Present: normal bowel sounds, nontender, nondistended, soft Back Exam: Present: normal inspection, normal range of motion, no CVA tenderness, no vertebral tenderness Extremity Exam: Present: other - Patient has significant tenderness with movement of the right hip and impression. Distraction does not cause pain. Sitting her up causes severe pain in the right hip. Distal neurovascular is intact. Wiggles her toes without difficulty. Normal color. Pulses strong. Neurological Exam: Present: alert, oriented, normal mood/affect, no motor/sensory deficits Skin Exam: Present: normal color, warm/dry Lymphatic Exam: Present: no adenopathy Progress - Results and Orders Patient's Lab Results:: I have reviewed the patient's lab results. - Vital Signs Patient's Vital Signs:: I have reviewed the patient's vital signs. Vital Signs: Vital Signs 12/03/18 03:09 Temperature 36.6 C Pulse Rate 88 Respiratory Rate 18 Blood Pressure 161/72 H O2 Sat by Pulse Oximetry 100 - EKG EKG #1 EKG read: Interp. by me EKG Comments: EKG demonstrates sinus rhythm ventricular rate of 99. Normal axis. Right bundle branch block with QRS duration of 142. T waves have normal morphology and direction. No ST elevation. - X-Ray X-Ray #1 X-Ray: chest Interpretation: Interp. by me X-ray Comments: No acute cardiopulmonary disease noted X-Ray #2 X-Ray: hip Interpretation: Interp. by me X-ray Comments: Right hip films are evaluated. No obvious fractures of the hip/femur. There is an irregularity of the left side of the inferior pubic ramus. This is really unchanged from prior. - Progress/Reassessment Chief Complaint: Dyspnea Plan - Plan Plan: The patient apparently has been complaining of right hip pain since she fell 2 years ago. The nursing staff says that the patient "seems to exaggerate her pain" they are aware that she has this pain which is not well controlled, but again they have not really addressed it "because they do not think that the pain is legitimate, she seems to be over exaggerating " Patient received some morphine. Seems to be more comfortable. Not having any shortness of breath. Labs do not indicate any significant abnormalities. I suspect the shortness of breath was due to the pain that she was having. 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 Several acute lumbar fractures were also noted, this was about a month ago. She has been having the same pain for years. It is unlikely that we are going to identify a new cause or have specific treatment here in the ER. She does have pain medicine however apparently staff was hesitant to give it to her as they feel like she might be overreacting. The patient is noted to be extremely "needy" when she gets worked up or appears to be having pain. That is the experience of the nursing and hospital staff here as well. No further evaluation or management is appropriate here in the ER. She will need to follow-up with her family doctor to see about getting her pain been under better control. Will be released to go back to the custodial. The patient received 1/2 mg of Ativan after 2 doses of pain medicine. She became exceedingly sleepy. She had periods of apnea where she desaturated. We have observed her now for a couple of hours. Still having a bit of desaturation but she is very comfortable having no significant pain. She can move around her leg. CAT scan does not show anything abnormal. Go to give her about another hour and as long as she does not have further significant desaturations we will let her go home Departure Clinical Impression: Hip pain Qualifiers: Laterality: right Qualified Code(s): M25.551 - Pain in right hip - Departure Disposition: Nursing Facility, Not MCR Cert Condition: Stable Additional Instructions: As we talked about, the x-rays done here did not show a definite cause for your hip pain. You have indicated to me that you have had this same hip pain for years. You have indicated to me that you have the same severe, 10 out of 10, pain in your hip every single day. You have indicated to me that when you have this hip pain you get short of breath. You have had comprehensive evaluations by multiple physicians who have not been able to identify a definite cause for your pain. I am also unable to identify a definite cause for your pain. Just because I cannot identify a cause for your pain does not mean there is nothing wrong. I am being aggressive with managing your pain with medicines. I want the custodial staff to be more aggressive with treating your pain as well. You can get into see your family doctor. Call for an appointment. If you develop new concerning symptoms you should return to the ER Referrals: Quang Contreras MD [Primary Care Provider] -
[2018-12-03 03:37] LABS: Hematocrit 36.5 % (37.0-47.0); Hemoglobin 12.6 gm/dL (12.5-16.0); Mean Cell Volume 101.4 fl (78-100); Mean Corpuscular Hgb Conc 34.5 g/dl (32-36); Mean Platelet Volume 8.4 fl (8-12.5); Neutrophil % 63.6 % (42-75.0); Platelet Count 366 K/mm3 (150-450); Red Cell Distribution Width 12.3 % (11.5-14.0); White Blood Count 7.9 K/mm3 (4.0-10.5)
[2018-12-03 03:48] LABS: Urine Bilirubin Negative (NEGATIVE); Urine Blood Negative /ul (NEGATIVE); Urine Ketone Negative (NEGATIVE); Urine Nitrite Negative (NEGATIVE); Urine Protein Negative (NEGATIVE); Urine Specific Gravity 1.015 SP.GR. (1.005-1.010); Urine Urobilinogen Normal (NORMAL); Urine pH 6.5 pH (5.0-7.0)
[2018-12-03 03:53] LABS: Urine Appearance Clear (CLEAR); Urine Bacteria 1+; Urine Color Yellow; Urine RBC None Seen /hpf (0-5); Urine WBC None Seen /hpf (0-5)
[2018-12-03 04:22] LABS: ALT 143 U/L (19-67); AST 54 U/L (0-48); Albumin * 3.6 gm/dl (3.4-5.0); Alkaline Phosphatase * 160 U/L (50-170); BNP * 245 pg/mL (5-550); BUN/Creatinine Ratio 13.6 (9.0-21.6); Bilirubin, Total 0.6 mg/dL (0.0-1.1); Blood Urea Nitrogen 12 mg/dL (3-23); Ca. Corrected For Albumin 9.5 mg/dL (8.4-10.2); Calcium * 9.5 mg/dL (7.9-10.9); Carbon Dioxide 24.4 mmol/L (24-32.6); Chloride 100 mmol/L (97-106); Glucose * 125 mg/dL (70-110); Potassium 4.4 mmol/L (3.4-4.6); Sodium 135 mmol/L (132-142); Troponin I Less than 0.017 ng/mL (0.00-0.10)
[2018-12-03] MEDS ORDERED: MORPHINE SULFATE 2 MG/ML DISP.SYRIN ONE (04:28)
[2018-12-03] MEDS ORDERED: LORazepam 2 MG/ML DISP.SYRIN IV ONE ×2 (05:03→05:07)
[2018-12-03] MEDS ORDERED: FLUMAZENIL 0.1 MG/ML VIAL IV ONE (07:22)
[2018-12-03] MEDS ORDERED: ACETAMINOPHEN 325 MG TABLET PO PRN (10:09)
--- NOTE | 2018-12-03 11:20 | HP ---
Chief Complaint - Chief Complaint Date of Service: 12/03/18 Time of Service: 11:13 Chief Complaint: hypoventilation and sedation History of Present Illness: Reji Amaya is an 88-year-old white female resident of the [facility] with past medical history of diabetes mellitus type 2, generalized anxiety disorder, depression, hyperlipidemia, overactive bladder, who was admitted on 12/03/2018 because of hypoventilation and sedation. The patient is drowsy and would open her eyes with name call and go back to sleep. As per ED notes the patient was brought to the emergency room around 3 AM because of shortness of breath per EMS and per [facility] personnel. However the patient said that her shortness of breath is due to her severe right hip pain. She was yelling out and grasping at her right hip and right groin area. She was given 2 doses of morphine at 5 mg each and also IV Ativan and the patient's pain was relieved however the patient got oversedated and started desaturating in the 70s to 80s. She was given 1 dose of Romazicon but patient remained very sleepy and sedated and so she was admitted for observation. She got a CT scan of her pelvis and right hip which showed-IMPRESSION: 1. Osteopenia. Redemonstration of the subacute incompletely healed fracture at the left sacral ala which demonstrates some remodeling, however the fracture line is still visualized. This was seen on the prior CT on 10/22/2018. 2. Chronic fracture deformities of the left pubic bone, left superior and inferior pubic rami. There is a nonhealing fracture at the left pubic bone with the fracture line demonstrating sclerotic margins. 3. No acute displaced fracture. IMPRESSION No acute fracture. Moderate osteoarthrosis of the right hip. As As per [facility] personnel her fall was 2 years ago. However reviewing her imaging studies she was in the emergency room on 10/27/2018 for low back pain. Lumbar sacral MRI did show osteoporosis and likely acute compression fracture of L2-L3 as well as a likely sacral insufficiency fracture. Medical History (Updated 12/03/18 @ 11:36 by Meghann Daily MD) Major depression (Chronic) Overactive bladder (Chronic) Onset Date: Unknown Hyperlipemia (Chronic) Onset Date: Unknown Generalized anxiety disorder (Chronic) Onset Date: Unknown Diabetes mellitus, type II (Chronic) Onset Date: Unknown Groin pain Scoliosis Weakness generalized Arthritis Depression Glaucoma Onset Date: Unknown Major depressive disorder Nightmares Wears dentures Onset Date: Unknown Wears glasses Onset Date: Unknown Bronchitis Measles Scarlet fever Surgical History: Surgical History (Updated 06/15/18 @ 10:36 by SUSAN Peterson) H/O bilateral cataract extraction Onset Date: ~1997 History of bladder surgery Onset Date: ~10/1998 S/P SUSANA (total abdominal hysterectomy) Onset Date: ~1995 Family History: Family History (Updated 11/03/17 @ 17:34 by Katarzyna Lubin LPN) Sister CVA (cerebral vascular accident) Diabetes Brother Cancer Grandmother Heart disease paternal Hypertension paternal Mother Hypertension Daughter FH: mental illness spent time at [facility] for talking too fast Other Unknown family medical history Social History: (Last Reviewed 12/03/18 @ 10:47 by Evonne Haro RN) Social History: adopted: No group home: Yes household members: caregiver current occupational status: retired Service: No Tobacco: Smoking Status: Never smoker Alcohol: alcohol intake: never Substance Use: substance use type: does not use Dietary Habits: caffeine: Yes Review Of Systems (GEN) - Review of Systems Additional Comments: unobtainable as per still drowsy and sedated Immunizations: IMMUNIZATION HX Immunizations Up to Date Yes History of Influenza Vaccine No Hx Pneumococcal Vaccination No Allergies/Adverse Reactions: Allergies Allergy/AdvReac Type Severity Reaction Status Date / Time amoxicillin Allergy Verified 12/03/18 10:47 Penicillins Allergy Rash Hives Verified 12/03/18 10:47 prednisone Allergy Verified 12/03/18 10:47 Home Medications: HOME MEDICATIONS nystatin 100,000 unit/gram topical powder 1 applic TP BID PRN #60 g 09/15/17 [Last Taken Unknown] BiPAP 16 cm RAIMUNDO DIRECTED #1 10/14/17 [Last Taken Unknown] walker See Dose Instructions .ROUTE .MEDSUPPLY #1 ea 10/14/17 [Last Taken Unknown] CETAPHIL MOISTURIZING CREAM See Rx Instructions .ROUTE .COMPLEX #453 gram 07/07/18 [Last Taken Unknown] alprazolam 0.5 mg tablet 0.5 mg PO BID PRN #60 tab 07/10/18 [Last Taken Unknown] mirabegron ER 50 mg tablet,extended release 24 hr 50 mg PO DAILY 09/15/18 [Last Taken Unknown] tramadol 50 mg tablet 50 mg PO Q6H PRN #30 tab 09/20/18 [Last Taken Unknown] amlodipine 5 mg tablet 5 mg PO DAILY #90 tab 09/26/18 [Last Taken Unknown] simvastatin 20 mg tablet 20 mg PO DAILY #30 tab 11/06/18 [Last Taken Unknown] loperamide 2 mg capsule 2 mg PO Q4H PRN #90 cap 11/13/18 [Last Taken Unknown] acetaminophen 325 mg tablet 650 mg PO Q4H #360 tab 11/16/18 [Last Taken Unknown] escitalopram 20 mg tablet 20 mg PO DAILY #30 tab 11/16/18 [Last Taken Unknown] trazodone 50 mg tablet 50 mg PO HS #30 tab 11/16/18 [Last Taken Unknown] menthol 4 % topical gel 1 applic TP QID PRN #118 ml 11/23/18 [Last Taken Unknown] metoprolol tartrate 25 mg tablet 25 mg PO BID #60 tab 11/27/18 [Last Taken Unknown] Apixaban [Eliquis] 2.5 mg PO BID 12/03/18 [Last Taken Unknown] Ferrous Sulfate [Iron] 325 mg PO BID 12/03/18 [Last Taken Unknown] Sulfamethoxazole/Trimethoprim [Bactrim 400-80 mg Tablet] 1 ea PO DAILY 12/03/18 [Last Taken Unknown] Exam - Exam Vital Signs: Vital Signs - Last Taken Temp 36.8 C 12/03/18 10:48 Pulse 100 12/03/18 10:48 Resp 20 12/03/18 10:48 BP 132/76 12/03/18 10:48 Pulse Ox 96 12/03/18 10:48 Constitutional: Present: Alert - AAo x 1- opened her eyes with name call ENT Exam: Present: hearing grossly normal Eye Exam: bilateral eye: normal inspection, PERRL, EOMI Neck: Present: supple. Absent: lymphadenopathy (R), lymphadenopathy (L) Respiratory: Present: normal breath sounds, No rales, No wheezing Cardiovascular/Chest: Present: regular rate, rhythm, no JVD, no murmur Abdomen: Present: Normal bowel sounds, soft, nontender, nondistended Extremity: Present: no pedal edema, no calf tenderness Diagnostic Studies: Abnormal Lab Results 10/12/03/18 12/03/18 Range/Units 03:14 03:30 03:30 RBC 3.60 L (4.2-5.4) M/mm3 Hct 36.5 L (37.0-47.0) % MCV 101.4 H (78-100) fl MCH 35.0 H (27-31) pg Anion Gap 15.0 H (6.8-13.8) mmol/L Random Glucose 125 H (70-110) mg/dL AST 54 H (0-48) U/L ALT 143 H (19-67) U/L Urine Bacteria 1+ H (NONE) Laboratory Results WBC 7.9 K/mm3 (4.0-10.5) 12/03/18 03:30 RBC 3.60 M/mm3 (4.2-5.4) L 12/03/18 03:30 Hgb 12.6 gm/dL (12.5-16.0) 12/03/18 03:30 Hct 36.5 % (37.0-47.0) L 12/03/18 03:30 MCV 101.4 fl (78-100) H 12/03/18 03:30 MCH 35.0 pg (27-31) H 12/03/18 03:30 MCHC 34.5 g/dl (32-36) 12/03/18 03:30 RDW 12.3 % (11.5-14.0) 12/03/18 03:30 Plt Count 366 K/mm3 (150-450) 12/03/18 03:30 MPV 8.4 fl (8-12.5) 12/03/18 03:30 Immature Gran % (Auto) 0.40 % (0.001-0.429) 12/03/18 03:30 Immature Gran # (Auto) 0.03 K/mm3 (0.000-0.0310) 12/03/18 03:30 63.6 % (42-75.0) 12/03/18 03:30 26.6 % (20-51) 12/03/18 03:30 7.0 % (0.0-9) 12/03/18 03:30 1.8 % (0.0-3.0) 12/03/18 03:30 0.6 % (0.0-1.0) 12/03/18 03:30 Nucleated RBC % 0.0 k/mm3 (0-1) 12/03/18 03:30 5.0 K/mm3 (1.3-6.0) 12/03/18 03:30 2.10 k/mm3 (1.5-3.5) 12/03/18 03:30 0.6 k/mm3 (0.0-1.0) 12/03/18 03:30 0.1 k/mm3 (0.0-0.7) 12/03/18 03:30 Absolute Basophils 0.1 k/mm3 (0.0-0.1) 12/03/18 03:30 Sodium 135 mmol/L (132-142) 12/03/18 03:30 135 mmol/L (130-142) 12/03/18 03:30 Potassium 4.4 mmol/L (3.4-4.6) 12/03/18 03:30 Chloride 100 mmol/L (97-106) 12/03/18 03:30 Carbon Dioxide 24.4 mmol/L (24-32.6) 12/03/18 03:30 15.0 mmol/L (6.8-13.8) H 12/03/18 03:30 BUN 12 mg/dL (3-23) 12/03/18 03:30 0.88 mg/dL (0.4-1.4) 12/03/18 03:30 Est GFR (Non-Af Amer) 64 mL/min (60-130) 12/03/18 03:30 13.6 (9.0-21.6) 12/03/18 03:30 125 mg/dL (70-110) H 12/03/18 03:30 Calcium 9.5 mg/dL (7.9-10.9) 12/03/18 03:30 Calcium Adj for Albumin 9.5 mg/dL (8.4-10.2) 12/03/18 03:30 0.6 mg/dL (0.0-1.1) 12/03/18 03:30 AST 54 U/L (0-48) H 12/03/18 03:30 ALT 143 U/L (19-67) H 12/03/18 03:30 160 U/L (50-170) 12/03/18 03:30 Less than 0.017 ng/mL (0.00-0.10) 12/03/18 03:30 B-Natriuretic Peptide 245 pg/mL (5-550) 12/03/18 03:30 7.0 gm/dL (6.2-8.2) 12/03/18 03:30 3.6 gm/dl (3.4-5.0) 12/03/18 03:30 Yellow 12/03/18 03:14 Clear (CLEAR) 12/03/18 03:14 6.5 pH (5.0-7.0) 12/03/18 03:14 Ur Specific [place] 1.015 SP.GR. (1.005-1.010) 12/03/18 03:14 Negative mg/dL (NEGATIVE) 12/03/18 03:14 Negative mg/dL (NEGATIVE) 12/03/18 03:14 Negative mg/dL (NEGATIVE) 12/03/18 03:14 Negative /ul (NEGATIVE) 12/03/18 03:14 Negative (NEGATIVE) 12/03/18 03:14 Negative mg/dl (NEGATIVE) 12/03/18 03:14 Normal EU/dl (NORMAL) 12/03/18 03:14 Ur Leukocyte Esterase Negative /ul (NEGATIVE) 12/03/18 03:14 None seen /hpf (0-5) 12/03/18 03:14 None seen /hpf (0-5) 12/03/18 03:14 Ur Epithelial Cells 0-5 /hpf (0-5) 12/03/18 03:14 1+ (NONE) H 12/03/18 03:14 No culture indicated 12/03/18 03:14 Assessment/Plan - Narrative Narrative: Reji Amaya is an 88-year-old white female who was admitted for hypoventilation and oversedation. We will continue to observe and. Monitor patient. We will resume meals and oral medications when patient is fully awake to avoid aspiration. When she opened her eyes and when I asked her if she was still having pain she said no and went to sleep again. 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 We will try to see if starting her on Miacalcin will also help her with her right groin pain which could be radiation from her L2-L3 compression fracture. I am not sure if she will benefit from a kyphoplasty at this time and will leave that up to her PCP. - Assessment/Plan (1) Sedated due to medication Problem: Acute (2) Hip pain Problem: Chronic Qualifiers: Laterality: right Qualified Code(s): M25.551 - Pain in right hip (3) CAD (coronary artery disease), [place] coronary artery Problem: Chronic Qualifiers: [place] vs. transplanted heart: [place] heart Associated angina: without angina Qualified Code(s): I25.10 - Atherosclerotic heart disease of [place] coronary artery without angina pectoris (4) Major depression Problem: Chronic Qualifiers: Major depression recurrence: recurrent Active/Remission status: currently active Major depression episode severity: mild Qualified Code(s): F33.0 - Major depressive disorder, recurrent, mild (5) Overactive bladder Problem: Chronic (6) Hyperlipemia Problem: Chronic Qualifiers: Hyperlipidemia type: pure hypercholesterolemia Qualified Code(s): E78.00 - Pure hypercholesterolemia, unspecified; E78.0 - Pure hypercholesterolemia (7) Generalized anxiety disorder Problem: Chronic (8) Diabetes mellitus, type II Problem: Chronic Qualifiers: Diabetes mellitus skilled nursing insulin use: without termite exterminator use Diabetes mellitus complication status: without complication Qualified Code(s): E11.9 - Type 2 diabetes mellitus without complications
[2018-12-03] MEDS ORDERED: LOPERAMIDE HCL 2 MG CAPSULE PO PRN (16:32)
[2018-12-03] MEDS ORDERED: traMADol HCL 50 MG TABLET PO PRN (16:32)
[2018-12-03] MEDS ORDERED: NYSTATIN 15 APPL BTL TP PRN (16:32)
[2018-12-03] MEDS ORDERED: MENTHOL TP PRN (16:32)
[2018-12-03] MEDS ORDERED: [UNRECOGNIZED DRUG - OTHER] NAS SCH (16:45)
[2018-12-03] MEDS: ACETAMINOPHEN 325 MG TABLET PO SCH ×2 (17:32→20:26)
[2018-12-03] MEDS: METOPROLOL TARTRATE 25 MG TABLET PO SCH (20:29)
[2018-12-03] MEDS: FERROUS SULFATE 325 MG TABLET PO SCH (20:29)
[2018-12-03] MEDS: APIXABAN 2.5 MG TABLET PO SCH (20:29)
[2018-12-04] MEDS: ACETAMINOPHEN 325 MG TABLET PO SCH ×3 (00:06→09:48)
--- NOTE | 2018-12-04 08:46 | DS ---
(1) Sedated due to medication Problem: Resolved (2) Hip pain Problem: Chronic Qualifiers: Laterality: right Qualified Code(s): M25.551 - Pain in right hip (3) CAD (coronary artery disease), [place] coronary artery Problem: Chronic Qualifiers: [place] vs. transplanted heart: [place] heart Associated angina: without angina Qualified Code(s): I25.10 - Atherosclerotic heart disease of [place] coronary artery without angina pectoris (4) Major depression Problem: Chronic Qualifiers: Major depression recurrence: recurrent Active/Remission status: currently active Major depression episode severity: mild Qualified Code(s): F33.0 - Major depressive disorder, recurrent, mild (5) Overactive bladder Problem: Chronic (6) Hyperlipemia Problem: Chronic Qualifiers: Hyperlipidemia type: pure hypercholesterolemia Qualified Code(s): E78.00 - Pure hypercholesterolemia, unspecified; E78.0 - Pure hypercholesterolemia (7) Generalized anxiety disorder Problem: Chronic (8) Diabetes mellitus, type II Problem: Chronic Qualifiers: Diabetes mellitus intermission coordinator insulin use: without senior care use Diabetes mellitus complication status: without complication Qualified Code(s): E11.9 - Type 2 diabetes mellitus without complications (9) Osteoporosis Problem: Acute Qualifiers: Osteoporosis type: age-related Date of Discharge:: 12/04/18 Description of Stay: Gabriella Amaya is an 88-year-old white female resident of the [facility] with past medical history of diabetes mellitus type 2, generalized anxiety disorder, depression, hyperlipidemia, overactive bladder, who was admitted on 12/03/2018 because of hypoventilation and sedation. The patient is drowsy and would open her eyes with name call and go back to sleep. As per ED notes the patient was brought to the emergency room around 3 AM because of shortness of breath per EMS and per [facility] personnel. However the patient said that her shortness of breath is due to her severe right hip pain. She was yelling out and grasping at her right hip and right groin area. She was given 2 doses of morphine at 5 mg each and also IV Ativan and the patient's pain was relieved however the patient got oversedated and started desaturating in the 70s to 80s. She was given 1 dose of Romazicon but patient remained very sleepy and sedated and so she was admitted for observation. She got a CT scan of her pelvis and right hip which showed-IMPRESSION: 1. Osteopenia. Redemonstration of the subacute incompletely healed fracture at the left sacral ala which demonstrates some remodeling, however the fracture line is still visualized. This was seen on the prior CT on 10/22/2018. 2. Chronic fracture deformities of the left pubic bone, left superior and inferior pubic rami. There is a nonhealing fracture at the left pubic bone with the fracture line demonstrating sclerotic margins. 3. No acute displaced fracture. IMPRESSION No acute fracture. Moderate osteoarthrosis of the right hip. As As per [facility] personnel her fall was 2 years ago. However reviewing her imaging studies she was in the emergency room on 10/27/2018 for low back pain. Lumbar sacral MRI did show osteoporosis and likely acute compression fracture of L2-L3 as well as a likely sacral insufficiency fracture. Gabriella is now awake alert oriented x3. She will be discharge on her home medications and we will make a follow-up appointment with her PCP this week. Her persistent pain could be due to her sacral insufficiency fracture and or compression fracture over L2L3 radiating to her groin area, right. Will add lidoderm patch to her home medication of tramadol. She may need to be on biphosphonates but will leave that up to her PCP. Procedures Performed: none Results and Findings: Lab Pending Results 12/03/18 03:14: Urine Color Yellow, Urine Appearance Clear, Urine pH 6.5, Ur Specific [place] 1.015, Urine Protein Negative, Urine Glucose (UA) Negative, Urine Ketones Negative, Urine Blood Negative, Urine Nitrate Negative, Urine Bilirubin Negative, Urine Urobilinogen Normal, Ur Leukocyte Esterase Negative, Urine RBC None seen, Urine WBC None seen, Ur Epithelial Cells 0-5, Urine Bacteria 1+ H, Urine Culture Comments No culture indicated 12/03/18 03:30: WBC 7.9, RBC 3.60 L, Hgb 12.6, Hct 36.5 L, MCV 101.4 H, MCH 35.0 H, MCHC 34.5, RDW 12.3, Plt Count 366, MPV 8.4, Immature Gran % (Auto) 0.40, Immature Gran # (Auto) 0.03, Neutrophils % 63.6, Lymphocytes % 26.6, Monocytes % 7.0, Eosinophils % 1.8, Basophils % 0.6, Nucleated RBC % 0.0, Neutrophils # 5.0, Lymphocytes # 2.10, Monocytes # 0.6, Eosinophils # 0.1, Absolute Basophils 0.1 12/03/18 03:30: Sodium 135, Plasma Sodium 135, Potassium 4.4, Chloride 100, Carbon Dioxide 24.4, Anion Gap 15.0 H, BUN 12, Creatinine 0.88, Est GFR (Non-Af Amer) 64, BUN/Creatinine Ratio 13.6, Random Glucose 125 H, Calcium 9.5, Calcium Adj for Albumin 9.5, Total Bilirubin 0.6, AST 54 H, ALT 143 H, Alkaline Phosphatase 160, Troponin I Less than 0.017, B-Natriuretic Peptide 245, Total Protein 7.0, Albumin 3.6 Discharge Location: [facility] Disposition: Home self-care Condition: Stable Discharge Activity: Activity as tolerated Discharge Diet: Consistent carbs Referrals: Quang Contreras MD [Primary Care Provider] - Additional Patient Instructions (free text): Follow up with PCP in 1 week. Prescriptions (Any new or edited meds): Calcium Citrate/Vitamin D2 [Rashi-Citrate Plus Vitamin D Tab] 1 ea PO BID #60 tab Lidocaine [Lidoderm 5%] 1 patch TOPICAL DAILY #30 patch Complete Home Medications List: Complete Home Medication List: nystatin 100,000 unit/gram topical powder 1 applic TP BID PRN #60 g 09/15/17 BiPAP 16 cm RAIMUNDO DIRECTED #1 10/14/17 walker See Dose Instructions .ROUTE .MEDSUPPLY #1 ea 10/14/17 CETAPHIL MOISTURIZING CREAM See Rx Instructions .ROUTE .COMPLEX #453 gram 07/07/18 alprazolam 0.5 mg tablet 0.5 mg PO BID PRN #60 tab 07/10/18 mirabegron ER 50 mg tablet,extended release 24 hr 50 mg PO DAILY 09/15/18 tramadol 50 mg tablet 50 mg PO Q6H PRN #30 tab 09/20/18 amlodipine 5 mg tablet 5 mg PO DAILY #90 tab 09/26/18 simvastatin 20 mg tablet 20 mg PO DAILY #30 tab 11/06/18 loperamide 2 mg capsule 2 mg PO Q4H PRN #90 cap 11/13/18 acetaminophen 325 mg tablet 650 mg PO Q4H #360 tab 11/16/18 escitalopram 20 mg tablet 20 mg PO DAILY #30 tab 11/16/18 trazodone 50 mg tablet 50 mg PO HS #30 tab 11/16/18 menthol 4 % topical gel 1 applic TP QID PRN #118 ml 11/23/18 metoprolol tartrate 25 mg tablet 25 mg PO BID #60 tab 11/27/18 Apixaban [Eliquis] 2.5 mg PO BID 12/03/18 Ferrous Sulfate [Iron] 325 mg PO BID 12/03/18 Sulfamethoxazole/Trimethoprim [Bactrim 400-80 mg Tablet] 1 ea PO DAILY 12/03/18 Calcium Citrate/Vitamin D2 [Rashi-Citrate Plus Vitamin D Tab] 1 ea PO BID #60 tab 12/04/18 Lidocaine [Lidoderm 5%] 1 patch TOPICAL DAILY #30 patch 12/04/18
[2018-12-04] MEDS ORDERED: amLODIPine BESYLATE 5 MG TABLET PO SCH (09:00)
[2018-12-04] MEDS ORDERED: SIMVASTATIN 20 MG TABLET PO SCH ×2 (09:00→21:00)
[2018-12-04] MEDS ORDERED: ESCITALOPRAM OXALATE 10 MG TAB PO SCH (09:00)
[2018-12-04] MEDS ORDERED: MIRABEGRON 25 MG TAB.PO.ER PO SCH (09:00)
[2018-12-04] MEDS: APIXABAN 2.5 MG TABLET PO SCH (09:49)
[2018-12-04] MEDS: FERROUS SULFATE 325 MG TABLET PO SCH (09:49)
[2018-12-04] MEDS: METOPROLOL TARTRATE 25 MG TABLET PO SCH (09:51)
[2018-12-04] MEDS ORDERED: FLU VACC QS2019-20(6MOS UP)/PF 60 MCG/0.5 ML SYRINGE IM ONE (11:47)
[2018-12-04 13:17] VITALS: BP 151/88
== END 2018-12-04 13:05 | disposition home or self-care (01) ==
LOC: MS 03:03 → ER 03:03 → MS 10:39
PROVIDERS: ADMIT Internal Medicine; ATTEND Internal Medicine
CPT/HCPCS: 36415; 71010; 71045; 72192; 73502; 73700; 80053; 81001; 83519; 83880; 84484; 85025; 87081; 90686; 93005; 94660; 96374; 96375; 99285; G0008; G0378